=== PATIENT | female | born 1965 | race African-American/Black ===

== ENCOUNTER 2019-01-15 18:19 | Emergency (ER) | payer MEDICAID ==
[~2019-01-15] VITALS: Ht 175.3 cm; Wt 124.0 kg
[2019-01-15] MEDS: CLONIDINE 0.2MG TABLET PO ONE (20:00)
[2019-01-15 20:24] LABS: BASOPHILS % 1.3 % (0.0-2.0); EOSINOPHILS % 2.6 % (0.0-5.0); HEMATOCRIT. 39.2 % (36.0-48.0); HEMOGLOBIN. 13.4 g/dL (12.0-16.0); LYMPHOCYTES % 47.7 % (20.0-50.0); MEAN CORPUSCULAR HEMOGLOBIN 31.2 pg (28.0-32.0); MEAN CORPUSCULAR VOLUME 91.3 fL (81.0-99.0); MEAN PLATELET VOLUME 10.9 fl (7.4-10.4); NEUTROPHILS % 41.4 % (40.0-76.0); PLATELET 210 x1000/uL (130-400); RED BLOOD CELL COUNT 4.29 mill/uL (4.2-5.4); RED CELL DISTRIBUTION WIDTH 14.1 % (11.6-14.6)
[2019-01-15 20:29] LABS: CHLORIDE 108 mEq/L (98-107)
[2019-01-15 21:15] VITALS: BP 146/78
== END 2019-01-15 21:15 | disposition home or self-care (01) ==
LOC: ER 18:19
DX: I10 Essential (primary) hypertension (principal)
CPT/HCPCS: 36415; 84484; 93005; 99284

== ENCOUNTER 2021-06-11 15:36 | Emergency (ER) | payer MEDICAID ==
[~2021-06-11] VITALS: Ht 170.2 cm; Wt 102.0 kg
[2021-06-11 15:40] VITALS: BP 139/68
== END 2021-06-11 16:19 | disposition home or self-care (01) ==
LOC: ER 15:36
DX: R20.2 Paresthesia of skin (principal); I10 Essential (primary) hypertension; Z98.890 Other specified postprocedural states
CPT/HCPCS: 82962; 99281; Z7610

== ENCOUNTER 2022-06-30 11:33 | Emergency (ER) | payer MEDICAID ==
[~2022-06-30] VITALS: Ht 170.2 cm; Wt 142.0 kg
[2022-06-30 11:39] VITALS: BP 162/84
[2022-06-30] MEDS ORDERED: ACETAMINOPHEN 325MG TABLET PO ONE (12:30)
[2022-06-30] MEDS ORDERED: ACETAMINOPHEN 325MG TABLET PO NR (14:45)
[2022-06-30] MEDS ORDERED: ACET-2708 MT (15:14)
== END 2022-06-30 15:50 | disposition home or self-care (01) ==
LOC: ER 11:33
DX: S82.401A Unspecified fracture of shaft of right fibula, initial encounter for closed fracture (principal); W18.30XA Fall on same level, unspecified, initial encounter; Y93.89 Activity, other specified; Y92.89 Other specified places as the place of occurrence of the external cause; Y99.8 Other external cause status
CPT/HCPCS: 29515; 73610; 73630; 99284; Z7610

== ENCOUNTER 2022-07-08 08:04 | Emergency (ER) | payer MEDICAID ==
[~2022-07-08] VITALS: Ht 170.2 cm; Wt 143.0 kg
[~2022-07-08 08:04] MED LIST: ACET-2708 MT
[2022-07-08] MEDS ORDERED: IBUPROFEN 800MG TABLET PO ONE (10:00)
[2022-07-08] MEDS ORDERED: HYDROCODONE/ACETAMINOPHEN 5/325MG TABLET PO ONE (10:00)
[2022-07-08] MEDS ORDERED: NAPR500T7 PO (11:18)
[2022-07-08 12:18] VITALS: BP 124/74
== END 2022-07-08 12:20 | disposition home or self-care (01) ==
LOC: ER 08:04
DX: M25.571 Pain in right ankle and joints of right foot (principal); I10 Essential (primary) hypertension; Z98.890 Other specified postprocedural states
CPT/HCPCS: 73590; 73610; 99284

== ENCOUNTER 2023-03-20 08:44 | Emergency (ER) | payer MEDICAID ==
[~2023-03-20] VITALS: Ht 170.2 cm; Wt 105.0 kg
[~2023-03-20 08:44] MED LIST changes: +NAPR500T7 PO
[2023-03-20 08:50] VITALS: O2SAT 99
[2023-03-20] MEDS ORDERED: IBUPROFEN 600MG TABLET PO STA (09:08)
[2023-03-20 10:04] LABS: CLARITY URINE CLOUDY (CLEAR); COLOR URINE YELLOW (YELLOW); GLUCOSE URINE 3+ (NEGATIVE); KETONES URINE 1+ (NEGATIVE); LEUKOCYTE ESTERASE URINE 2+ (NEGATIVE); NITRITE URINE NEGATIVE (NEGATIVE); OCCULT BLOOD URINE TRACE (NEGATIVE); PH URINE 6.5 (4.5-8.0); PROTEIN URINE TRACE (NEGATIVE); SPECIFIC GRAVITY URINE 1.039 (1.005-1.030)
[2023-03-20 10:15] LABS: SQUAMOUS EPITHELIAL CELL URINE 2+ /lpf (RARE/1+)
[2023-03-20 10:18] LABS: WBC URINE TNTC /hpf (0-2)
[2023-03-20 10:19] LABS: BACTERIA URINE 4+
[2023-03-20] MEDS ORDERED: CEPH500C2 MT (10:30)
[2023-03-20 11:25] VITALS: BP 149/87; PULSE 94; RESP 18; TEMP 98.1
== END 2023-03-20 11:26 | disposition home or self-care (01) ==
LOC: ER 09:50
DX: N30.90 Cystitis, unspecified without hematuria (principal); E11.9 Type 2 diabetes mellitus without complications; I10 Essential (primary) hypertension; Z98.890 Other specified postprocedural states
CPT/HCPCS: 81003; 87070; 87430; 99283